=== PATIENT | female | born 1990 | race Caucasian/White ===

== ENCOUNTER 2016-10-07 04:31 | Inpatient (IN) | payer OTHER ==
[~2016-10-07] VITALS: Ht 188 cm; Wt 93.5 kg
--- NOTE | ~2016-10-07 | DS ---
Unit #: [id number] #: [id number] Patient: SHERRY MICHELLE [id number] [address] [place], [place] [address] [id number] I MR#: [id number] NAME: SHERRY MICHELLE ROOM: 46 Age: 25 Sex: F Admission Date: 10/07/2016 : 1990 Discharge Date: 10/08/2016 Attending Physician: Romario Rowley M.D. Primary Care Physician: Mark Anthony Jung M.D. DISCHARGE SUMMARY PRINCIPAL DIAGNOSIS Left axillary abscess. OPERATIONS/PROCEDURES Incision, drainage, and debridement of left axillary abscess. DISCHARGE INSTRUCTIONS 1. Normal saline wet to dry dressing b.i.d. 2. Prescriptions for [place] and clindamycin given. 3. Follow up with Dr. Vargas next week. 4. May shower. 5. Normal diet. CHIEF COMPLAINT/HISTORY OF PRESENT ILLNESS Patient is a 25-year-old, white female who presented with a large abscess to the left axilla. For a complete history and physical, please refer to the chart notes. HOSPITAL COURSE Patient was brought to the operating room and she underwent sharp excision debridement, incision, and drainage of her left axillary abscess. On postop day 1, dressings were started. Her pain was well controlled. She was discharged home in satisfactory condition with pain medication, antibiotics, and dressing supplies. She will follow up with Dr. Vargas next week. Dictated by... Irene Jackson/jaylyn TD: 10/08/2016 12:46 JOB #: [id number] Unit #: [id number] #: [id number] Patient: SHERRY MICHELLE DISCHARGE SUMMARY Page 1 of 1 X Freddy Zamarripa MD X DISCHARGE SUMMARY
--- NOTE | ~2016-10-07 | HP ---
Unit #: [id number] #: [id number] Patient: SHERRY LUCERO [id number] [facility] [address]. [place], [place] [address] [id number] I MR#: [id number] NAME: SHERRY LUCERO ROOM: Age: 25 Sex: F Admission Date: 10/07/2016 : 1990 Attending Physician: Romario Rowley M.D. Primary Care Physician: Mark Anthony Jung M.D. HISTORY AND PHYSICAL HISTORY AND EXAM Ms. Lucero is a 25-year-old female who presented to the emergency room at [facility] with a painful, enlarged, fluctuant abscess to the left axilla. She has no previous history of hidradenitis and believes that the abscess started as a small cyst, possibly secondary to trauma from shaving. 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 She denies any fever, chills or night sweats. PAST MEDICAL HISTORY 1. Asthma. 2. Bipolar disorder. 3. Anxiety. 4. Major depression. 5. Previous suicide attempts. 6. History of methamphetamine and Percocet drug abuse, recently started on Suboxone. 7. Previous . 8. She has had a history of chronic pancreatitis since age 12. 9. She has had a negative ERCP in the past. MEDICATIONS Medications include: 1. Celexa. 2. Clonazepam. 3. Again, prescription for Suboxone. ALLERGIES Penicillin and morphine. Both cause hives. FAMILY HISTORY Diabetes, hypertension and mental illness. SOCIAL HISTORY Two children, ages two years and 10 months. She is a pack a day smoker. She has recently used methamphetamine and oxycodone. She denies the use of alcohol except for occasionally but she avoids alcohol due to her history of pancreatitis. REVIEW OF SYSTEMS No fever, chills, night sweats. PHYSICAL EXAMINATION VITAL SIGNS: On exam, temperature is 98.0, pulse 92 and regular, Unit #: [id number] #: [id number] Patient: SHERRY LUCERO respirations 18, blood pressure 124/62. GENERAL: Awake, alert and oriented, cooperative. HEENT: No carotid bruits, otherwise unremarkable. Sclerae are clear. CARDIAC: Regular rate and rhythm without murmur, gallop or rub. LUNGS: Clear throughout. AXILLAE: In the left axilla she has a 10 x 4 cm, fluctuant, erythematous abscess. The right axilla and inguinal regions are normal. ABDOMEN: Benign. EXTREMITIES: No clubbing, cyanosis or edema. NEUROLOGICAL: Grossly intact. SKIN: No other skin rashes or lesions although she does have a tattoo. DIAGNOSTIC STUDIES LABORATORY: Basic metabolic panel is within normal limits. INR is 1.0, white count 17,300, hemoglobin 12.5, platelets 412,000. Tox screen is positive for opiates and benzodiazepines. Urinalysis - 5-10 white cells, nitrate negative. ASSESSMENT AND PLAN Patient presents with an acute abscess left axilla. She was given vancomycin and Levaquin in the emergency room. This is a large, fluctuant and painful abscess. She will need incision and drainage in the OR. We discussed risks, benefits, complication and the postoperative expectations of an open wound with dressing changes. She understands and agrees to proceed. Dictated by Romario Rowley M.D. DIVINA/jerry TD: 10/07/2016 08:59 JOB #: [id number] HISTORY AND PHYSICAL Page 1 of 1 X Romario Rowley MD HISTORY AND PHYSICAL
--- NOTE | ~2016-10-07 | OR ---
Unit #: [id number] #: [id number] Patient: SHERRY MICHELLE [id number] [address] [place], [place] [address] [id number] I MR#: [id number] NAME: SHERRY MICHELLE ROOM: 463 Date of Procedure: 10/07/2016 Admission Date: 10/07/2016 Surgeon: Lev Vargas Jr., M.D. : 1990 Attending Physician: Romario Rowley M.D. Primary Care Physician: Mark Anthony Jung M.D. OPERATIVE REPORT INDICATIONS FOR PROCEDURE The patient is a 25-year-old white female, who was admitted with a large abscess of the left axilla. She has been using illicit drugs in the past. It was felt this may be related. She has also had a known past history for MRSA. PREOPERATIVE DIAGNOSIS Large left axillary abscess approximately 12 cm in diameter to 14 cm in diameter. POSTOPERATIVE DIAGNOSIS Large left axillary abscess approximately 12 cm in diameter to 14 cm in diameter. FINDINGS Large abscess with necrotic base. ANESTHESIA General with LMA. PROCEDURE PERFORMED Incision and drainage, and sharp excisional debridement using #10 blade scalpel down to the deeper subcutaneous and fascia of the muscle. DESCRIPTION OF PROCEDURE The patient was positioned in supine position. After being anesthetized, she was prepped and draped in routine fashion for incision and drainage of this large abscess of the left axilla. An incision was made in the most fluctuant portion of the abscess and anabela pus was then obtained, cultures for aerobic and anaerobic organisms were sent and the rest of the incision was opened along its tracking. A large portion of skin was then removed from the area to keep the wound open and make it more easy to pack and after it was completely unroofed, it was irrigated and hemostasis was achieved with Bovie cautery and the necrotic tissue at the base was then removed with the Metzenbaum scissors as well as #10 blade scalpel. The initial incision and debridement was performed with a #10 blade scalpel down to the deeper subcutaneous tissue. After all the necrotic tissue was removed. Hemostasis was again achieved with Bovie cautery. The wound was irrigated with Betadine as well as saline and then packed open with Betadine moist dry dressings. Sterile dressings were applied externally. Estimated blood loss 100 to 150 mL. The patient received less than 1500 mL crystalloid solution during the procedure. Sponges and instruments Unit #: [id number] #: [id number] Patient: SHERRY MICHELLE counts were correct x3. No drains were used. No complications. The patient was taken to the recovery room with stable vital signs in satisfactory condition. Dictated by... Lev Vargas Jr., M.D. JMB/smitha TD: 10/07/2016 12:29 JOB #: [id number] OPERATIVE REPORT Page 1 of 1 X Lev Vargas MD X PROCEDURE OPERATIVE NOTE
[~2016-10-07 04:31] MED LIST: DULOXETINE HCL60 MG PO; KLONOPIN0.5 MG PO; SHAROBEL0.35 MG PO; ULTRAM PO; ZYPREXA2.5 MG PO
[2016-10-07 06:44] LABS: BASOPHIL# 0.1 X10e3 (0-0.3); BASOPHIL% 0.6 % (0-2.5); EOSINOPHIL# 0.2 X10e3 (0-0.7); EOSINOPHIL% 0.9 % (0.0-7.0); HEMATOCRIT 37.9 % (35.0-45.0); HEMOGLOBIN 12.5 gm/dL (12.0-16.0); LYMPHOCYTE# 2.1 X10e3 (1.0-3.5); LYMPHOCYTE% 12.2 % (17.0-45.0); MEAN CELL VOLUME 85.2 FL (83-96); MEAN CORPUSCULAR HEMOGLOBIN 28.1 PG (28-34); MEAN PLATELET VOLUME 7.3 FL (6.5-11.5); MONOCYTE# 1.4 X10e3 (0-1.0); MONOCYTE% 7.9 % (3.0-12.0); NEUTROPHIL# 13.6 X10e3 (1.5-7.1); NEUTROPHIL% 78.4 % (40-75); PLATELET COUNT 412 X10e3 (140-420); RED BLOOD COUNT 4.45 X10e (3.90-5.30); RED CELL DISTRIBUTION WIDTH 14.2 % (11.0-15.5); WHITE BLOOD COUNT 17.3 X10e3 (4.0-10.5)
[2016-10-07 06:44] LABS: URINE SOURCE CLEAN CATCH
[2016-10-07 06:46] LABS: DIFF IND YES
[2016-10-07 06:52] LABS: PARTIAL THROMBOPLASTIN TIME 27.3 SECONDS (23.5-31.3); PROTHROMBIN TIME (PATIENT) 10.5 SECONDS (10.0-11.7)
[2016-10-07 06:55] LABS: URINE APPEARANCE CLEAR; URINE BLOOD 3+ (NEG); URINE COLOR DK YELLOW; URINE GLUCOSE NEG (NEG); URINE KETONE TRACE (NEG); URINE LEUKOCYTE ESTERASE TRACE (NEG); URINE NITRATE NEG (NEG); URINE PROTEIN 1+ (NEG); URINE SPECIFIC GRAVITY 1.035 (1.003-1.035)
[2016-10-07 07:01] LABS: CULTURE INDICATED? YES; URBCS1 AUWI 50-100 /[HPF] (0-2); URINE BACTERIA AUWI 1+ (NEGATIVE); URINE SQUAMOUS EPITHELIAL CELL FEW /[HPF]
[2016-10-07 07:03] LABS: CALCIUM SERUM 8.8 mg/dL (8.4-10.2); CREATININE SERUM 0.7 mg/dL (0.6-1.4); GLOM FILT RATE Estimated 118.7 mL/min (>60); POTASSIUM 3.6 mmol/L (3.5-5.1)
[2016-10-07 07:14] LABS: URINE BILIRUBIN NEG (NEG)
[2016-10-07 07:18] LABS: URINE MUCUS PRESENT
[2016-10-07 07:35] LABS: AMPHETAMINE NEG (NEG); BARBITURATES NEG (NEG); BENZODIAZEPINES POS (NEG); COCAINE NEG (NEG); MARIJUANA NEG (NEG); OPIATES POS (NEG); TRICYCLIC ANTIDEPRESSANTS NEG (NEG); U METHADONE NEG (NEG)
[2016-10-07 08:04] LABS: PLATELET ESTIMATE NORMAL (NORMAL); SMUDGE CELLS 12 /100
[2016-10-07] MEDS ORDERED: PATIENT'S PHARMACY (10:03)
[2016-10-07] MEDS ORDERED: ADDERALL PO (10:04)
[2016-10-07] MEDS ORDERED: CITALOPRAM HBR40 MG PO (10:04)
[2016-10-07] MEDS ORDERED: KLONOPIN1 MG PO (10:04)
[2016-10-07] MEDS ORDERED: ZYPREXA PO (10:05)
[2016-10-08 04:00] LABS: HEMATOCRIT 32.5 % (35.0-45.0); HEMOGLOBIN 10.7 gm/dL (12.0-16.0); MEAN CELL VOLUME 85.5 FL (83-96); MEAN CORPUSCULAR HEMOGLOBIN 28.1 PG (28-34); MEAN CORPUSCULAR HGB CONC 32.9 g/dL (30-36); MEAN PLATELET VOLUME 7.4 FL (6.5-11.5); RED BLOOD COUNT 3.8 X10e (3.90-5.30); RED CELL DISTRIBUTION WIDTH 14.1 % (11.0-15.5); WHITE BLOOD COUNT 15.4 X10e3 (4.0-10.5)
[2016-10-08 04:22] LABS: ALBUMIN SERUM 3.2 g/dL (3.5-5.0); BILIRUBIN,TOTAL 0.2 mg/dL (0.2-2.0); CALCIUM SERUM 8.6 mg/dL (8.4-10.2); CREATININE SERUM 0.5 mg/dL (0.6-1.4); GLOM FILT RATE Estimated 132.7 mL/min (>60); POTASSIUM 3.9 mmol/L (3.5-5.1); PROTEIN TOTAL SERUM 6.8 g/dL (6.0-8.3)
[2016-10-08] MEDS ORDERED: ACETAMINOPHEN PO (13:18)
[2016-10-08] MEDS ORDERED: CLEOCIN HCL300 M1 PO (13:26)
[2016-10-08] MEDS ORDERED: LORCET 5-325 M1 EACH PO (13:26)
== END 2016-10-08 14:33 | disposition home or self-care (01) | DRG 572 ==
LOC: CED 04:31 → CPACUOF 08:03 → CEDOF 08:18 → C4C 08:18 → CPACUOF 08:18 → CED 08:18 → C4C 12:30 → CPACUOF 12:30 → C4C 10-08 14:33
PROVIDERS: Emergency Medicine; Specialist; Surgery
PROC: 0JBF0ZZ Excision of Left Upper Arm Subcutaneous Tissue and Fascia, Open Approach (ICD-10-PCS; principal; 2016-10-07 12:30)
DX: L02.412 Cutaneous abscess of left axilla (principal); F31.9 Bipolar disorder, unspecified; F41.9 Anxiety disorder, unspecified; F17.200 Nicotine dependence, unspecified, uncomplicated; Z91.5 Personal history of self-harm; Z88.0 Allergy status to penicillin; Z88.5 Allergy status to narcotic agent; Z86.14 Personal history of Methicillin resistant Staphylococcus aureus infection; Z83.3 Family history of diabetes mellitus; Z82.49 Family history of ischemic heart disease and other diseases of the circulatory system
CPT/HCPCS: 10061; 36415; 80048; 80053; 80307; 81003; 84703; 85025; 85027; 85610; 85730; 87040; 87070; 87075; 87077; 87086; 87186; 87205; 96365; 96375; 99284; J1100; J1170; J1885; J1956; J2250; J2270; J2405; J2765; J3010; J3370

== ENCOUNTER 2016-11-02 01:42 | Emergency (ER) | payer OTHER ==
[~2016-11-02] VITALS: Ht 188 cm; Wt 93.0 kg
[~2016-11-02 01:42] MED LIST changes: +ACETAMINOPHEN PO; +ADDERALL PO; +CITALOPRAM HBR40 MG PO; +CLEOCIN HCL300 M1 PO; +KLONOPIN1 MG PO; +LORCET 5-325 M1 EACH PO; +PATIENT'S PHARMACY; +ZYPREXA PO
== END 2016-11-02 04:17 | disposition home or self-care (01) ==
LOC: CED 01:42
DX: F11.129 Opioid abuse with intoxication, unspecified (principal); F41.9 Anxiety disorder, unspecified; F31.9 Bipolar disorder, unspecified; F17.200 Nicotine dependence, unspecified, uncomplicated; Z88.0 Allergy status to penicillin; J45.909 Unspecified asthma, uncomplicated
CPT/HCPCS: 99284

== ENCOUNTER 2016-11-15 16:06 | Emergency (ER) | payer OTHER ==
[~2016-11-15] VITALS: Ht 188 cm; Wt 88.5 kg
--- NOTE | ~2016-11-15 | EKG ---
PATIENT: SHERRY MICHELLE UNIT #: [id number] Ventricular Rate: 67 BPM Atrial Rate: 67 BPM P-R Interval: 172 ms QRS Duration: 102 ms Q-T Interval: 430 ms QTC Calculation(Bezet): 454 ms P Dennis: -14 degrees Calculated R Dennis: 61 degrees Calculated T Dennis: 35 degrees Diagnosis Line: Normal sinus rhythm Diagnosis Line: Normal ECG Diagnosis Line: When compared with ECG of 14-APR-2015 11:37, Diagnosis Line: Vent. rate has decreased BY 43 BPM Diagnosis Line: Confirmed by SOLA STANTON MD ([id number]) on 11/16/2016 Diagnosis Line: 11:05:47 PM INTERPRETING MD: MAXIMINO LI
--- NOTE | ~2016-11-15 | CR71 ---
[facility] A Service of [facility] & [facility] RADIOLOGY TEXT RESULTS PATIENT: SHERRY MICHELLE LOCATION: [facility] : [birth year] UNIT #: [id number] AGE: [address]: Clare Boyd MD SEX: F ORDER DR: [id number] [facility] [address] [place], [place] [address] [id number] MR#: [id number] Acc #: [id number] NAME: SHERRY MICHELLE : 1990 SEX: F STUDY DATE/TIME: 11/15/2016 17:15 UNIT: [facility] ROOM: STUDY DESCRIPTION: CR Chest Single View Attending Physician: Clare Boyd M.D. Ordering Physician: Clare Boyd M.D. Primary Care Physician: Mark Anthony Jung M.D. MEDICAL IMAGING REPORT This report is preliminary unless electronic signature is present EXAM AP radiograph of the chest HISTORY Short of air began 11/15/2016. Dizziness, syncope, low blood pressure. FINDINGS AP radiograph of the chest presented. Comparison 02/27/2015. The heart and mediastinum are normal in size and contour. The lungs are well inflated. No acute pulmonary disease, pleural effusion or pneumothorax. No suspicious nodule. Bony structures unremarkable. IMPRESSION 1. Normal AP radiograph chest. Dictated by... Isaias Sauceda M.D. THIS IS AN ELECTRONICALLY VERIFIED REPORT Isaias Sauceda M.D. at 11/18/2016 4:59 PM KAREN/vicki TD: 11/17/2016 01:11 JOB #: [id number] MEDICAL IMAGING REPORT Page 1 of 1 COPY
[2016-11-15 17:54] LABS: BASOPHIL# 0.1 X10e3 (0-0.3); BASOPHIL% 0.9 % (0-2.5); EOSINOPHIL# 0.4 X10e3 (0-0.7); EOSINOPHIL% 3.8 % (0.0-7.0); HEMATOCRIT 34.9 % (35.0-45.0); HEMOGLOBIN 11.6 gm/dL (12.0-16.0); LYMPHOCYTE# 3.4 X10e3 (1.0-3.5); LYMPHOCYTE% 32.1 % (17.0-45.0); MEAN CELL VOLUME 81.4 FL (83-96); MEAN CORPUSCULAR HEMOGLOBIN 27.2 PG (28-34); MEAN CORPUSCULAR HGB CONC 33.4 g/dL (30-36); MEAN PLATELET VOLUME 6.9 FL (6.5-11.5); MONOCYTE# 0.7 X10e3 (0-1.0); MONOCYTE% 7.2 % (3.0-12.0); NEUTROPHIL# 5.9 X10e3 (1.5-7.1); PLATELET COUNT 318 X10e3 (140-420); RED BLOOD COUNT 4.28 X10e (3.90-5.30); RED CELL DISTRIBUTION WIDTH 14.6 % (11.0-15.5); WHITE BLOOD COUNT 10.5 X10e3 (4.0-10.5)
[2016-11-15 17:56] LABS: DIFF IND NO
[2016-11-15 18:08] LABS: PROTHROMBIN TIME (PATIENT) 10.4 SECONDS (10.0-11.7)
[2016-11-15 18:23] LABS: ALBUMIN SERUM 3.6 g/dL (3.5-5.0); BILIRUBIN,TOTAL 0.3 mg/dL (0.2-2.0); BUN/CREATININE RATIO 16.25; CALCIUM SERUM 8.5 mg/dL (8.4-10.2); CREATININE SERUM 0.8 mg/dL (0.6-1.4); GLOM FILT RATE Estimated 101.1 mL/min (>60); POTASSIUM 3.9 mmol/L (3.5-5.1); PROTEIN TOTAL SERUM 6.2 g/dL (6.0-8.3)
[2016-11-15 18:24] LABS: BILIRUBIN, DIRECT 0.1 mg/dL (0.0-0.2); BILIRUBIN,INDIRECT 0.2 mg/dL (0.0-0.9)
== END 2016-11-15 20:33 | disposition short-term general hospital (02) ==
LOC: CED 16:06
PROVIDERS: Emergency Medicine
DX: R55 Syncope and collapse (principal); Z79.899 Other long term (current) drug therapy; Z88.0 Allergy status to penicillin
CPT/HCPCS: 36415; 71010; 80048; 80076; 84703; 85025; 85610; 93005; 96360; 99285